=== PATIENT | female | born 1960 | race Caucasian/White ===

== ENCOUNTER → 2021-07-08 | Outpatient (CLI) | payer OTHER | LOC: MAMMO 13:23 | PROVIDERS: ATTEND Obstetrics & Gynecology | DX: Z12.31 Encounter for screening mammogram for malignant neoplasm of breast (principal) | CPT/HCPCS: 77067 ==

== ENCOUNTER → 2024-09-01 | Outpatient (REF) | payer OTHER ==
[~2024-09-01] MED LIST: AMLODIPINE BESYL5 MG PO; ASPIRIN81 MG PO; CENTRUM ADULTS1 EACH PO; CLONAZEPAM1 MG PO; IRBESARTAN150 MG PO
== END ==
LOC: MAMMO 08:50
PROVIDERS: ATTEND Obstetrics & Gynecology
DX: Z12.31 Encounter for screening mammogram for malignant neoplasm of breast (principal)
CPT/HCPCS: 77067